=== PATIENT | male | born 1975 | race Caucasian/White ===

== ENCOUNTER 2017-12-12 14:14 | Emergency (ER) | payer OTHER ==
--- NOTE | 2017-12-12 14:55 | ED PDOC ---
Arrival/HPI - General Historian: Patient <Blane Emanuel A - Last Filed: 12/12/17 15:39> <Cheyenne Gregg - Last Filed: 12/15/17 02:21> - General Time Seen by Provider: 12/12/17 14:20 - History of Present Illness Narrative History of Present Illness (Text): 12/12/17 14:49 42yo male with pmhx of hypertension who present with complaint of right calf pain. states he had a "pop" when he leaned over his car to grab something this afternoon. He did not take any medication. Denies previous history. Denies recent surgery/travel, SOB, chest pain, dizziness, nausea, vomiting, any other complaint. (Blane Emanuel A) Past Medical History - Provider Review Nursing Documentation Reviewed: Yes - Cardiac Hx Cardiac Disorders: Yes Hx Hypertension: Yes - Pulmonary Hx Respiratory Disorders: No - Neurological Hx Neurological Disorder: No - HEENT Hx HEENT Disorder: No - Renal Hx Renal Disorder: No - Endocrine/Metabolic Hx Endocrine Disorders: No - Hematological/Oncological Hx Blood Disorders: No - Integumentary Hx Dermatological Disorder: No - Musculoskeletal/Rheumatological Hx Musculoskeletal Disorders: Yes Hx Fractures: Yes - Gastrointestinal Hx Gastrointestinal Disorders: No - Genitourinary/Gynecological Hx Genitourinary Disorders: No - Psychiatric Hx Psychophysiologic Disorder: No Hx Substance Use: No - Surgical History Hx Orthopedic Surgery: Yes (R ANKLE) <Blane Emanuel A - Last Filed: 12/12/17 15:39> Family/Social History - Physician Review Nursing Documentation Reviewed: Yes Family/Social History: Unknown Family HX Smoking Status: Never Smoked Hx Alcohol Use: No Hx Substance Use: No <Blane Emanuel A - Last Filed: 12/12/17 15:39> Allergies/Home Meds <Blane Emanuel A - Last Filed: 12/12/17 15:39> <Cheyenne Gregg - Last Filed: 12/15/17 02:21> Allergies/Adverse Reactions: Allergies No Known Allergies Allergy (Verified 12/12/17 14:21) Home Medications: Home Meds Medication Instructions Recorded Confirmed Losartan [Cozaar] 25 mg PO DAILY 12/12/17 12/12/17 Review of Systems - Physician Review All systems were reviewed & negative as marked: Yes - Review of Systems Constitutional: Normal Eyes: Normal ENT: Normal Respiratory: Normal Cardiovascular: Normal Gastrointestinal: Normal Genitourinary Male: Normal Musculoskeletal: Arthralgias (Right calf pain) Skin: Normal Neurological: Normal Endocrine: Normal Hemo/Lymphatic: Normal Psychiatric: Normal <JenaeBlane A - Last Filed: 12/12/17 15:39> Physical Exam Vital Signs Reviewed: Yes Temperature: Afebrile Blood Pressure: Normal Pulse: Regular Respiratory Rate: Normal Appearance: Positive for: Well-Appearing, Non-Toxic, Comfortable Pain Distress: None Mental Status: Positive for: Alert and Oriented X 3 - Systems Exam Head: Present: Atraumatic, Normocephalic Pupils: Present: PERRL Extroacular Muscles: Present: EOMI Conjunctiva: Present: Normal Mouth: Present: Moist Mucous Membranes Neck: Present: Normal Range of Motion Respiratory/Chest: Present: Clear to Auscultation, Good Air Exchange. No: Respiratory Distress, Accessory Muscle Use Cardiovascular: Present: Regular Rate and Rhythm, Normal S1, S2. No: Murmurs Abdomen: No: Tenderness, Distention, Peritoneal Signs Back: Present: Normal Inspection Upper Extremity: Present: Normal Inspection. No: Cyanosis, Edema Lower Extremity: Present: NORMAL PULSES, Normal ROM, Neurovascularly Intact. No : Edema, CALF TENDERNESS, Judi's Sign, Tenderness, Swelling Neurological: Present: GCS=15, CN II-XII Intact, Speech Normal Skin: Present: Warm, Dry, Normal Color. No: Rashes Psychiatric: Present: Alert, Oriented x 3, Normal Insight, Normal Concentration <JenaeBlane A - Last Filed: 12/12/17 15:39> Vital Signs Temp Pulse Resp BP Pulse Ox 12/12/17 15:50 98 F 75 19 123/53 L 99 12/12/17 14:21 97.9 F 79 16 126/88 97 Medical Decision Making <Blane Emanuel A - Last Filed: 12/12/17 15:39> <Cheyenne Gregg - Last Filed: 12/15/17 02:21> ED Course and Treatment: 12/12/17 15:41 PT in ED for stated history. His PE was benign. Doppler US ordered to r/o DVT. Per the US preliminary report, doppler was negative for DVT Result was DW the pt. He was ambulatory on DC and his PECARN score was zero. ( JenaeHappiness A) - RAD Interpretation Radiology Orders: 12/12/17 14:43 DUPLEX LOWER EXTRM VEIN RIGHT [US] Stat - Medication Orders Current Medication Orders: Discontinued Medications Ketorolac Tromethamine (Toradol) 60 mg IM STAT STA Stop: 12/12/17 15:34 Last Admin: 12/12/17 15:52 Dose: 60 mg MAR Pain Assessment Document 12/12/17 15:52 GMI (Rec: 12/12/17 15:52 GMI [place] [id number]) Pain Reassessment Is this a pain reassessment? Yes Sleep Is patient sleeping during reassessment? No Presence of Pain Presence of Pain Yes Pain Scale Used Pain Scale Used Numeric Location Left, Right or Bilateral Right Upper or Lower Lower Pain Location Body Site Calf Description Description Sharp Intensity of Pain at present 5 Pain Behavior Facial Grimacing Alleviating Factors Distraction IM Administration Charges Document 12/12/17 15:52 GMI (Rec: 12/12/17 15:52 GMI [place] [id number]) Injection Site MAR Injection Site Right Gluteus Dilan Charges for Administration # of IM Administrations 1 - [place] / CITY DETECTIVE / Resident Statement / has reviewed & agrees with the documentation as recorded. <Cheyenne Gregg - Last Filed: 12/15/17 02:21> Disposition/Present on Arrival - Present on Arrival Any Indicators Present on Arrival: No History of DVT/PE: No History of Uncontrolled Diabetes: No Urinary Catheter: No History of Decub. Ulcer: No History Surgical Site Infection Following: None - Disposition Have Diagnosis and Disposition been Completed?: Yes Disposition Time: 15:40 Patient Plan: Discharge <Blane Emanuel A - Last Filed: 12/12/17 15:39> <Cheyenne Gregg - Last Filed: 12/15/17 02:21> - Disposition Diagnosis: Strain of calf muscle Disposition: HOME/ ROUTINE Condition: STABLE Discharge Instructions (ExitCare): Lower Extremity Muscle Strain Additional Instructions: Follow up with your doctor return to ED for any new or worsening symptoms Prescriptions: Ibuprofen [Motrin Tab] 600 mg PO Q6 #15 tab Referrals: Coreen Hamm MD [Primary Care Provider] - Follow up with primary
[2017-12-12 15:57] VITALS: BP 123/53; PULSE 75; RESP 19; TEMP 98; O2SAT 99
--- NOTE | 2017-12-14 12:12 | US ---
PROCEDURE: Right lower extremity venous US HISTORY: Leg pain and swelling. Evaluate for DVT. PHYSICIAN(S): Eugene Wharton M.D. TECHNIQUE: Duplex sonography and color-flow Doppler with graded compression were used to evaluate the deep venous system of the right lower extremity. FINDINGS: The visualized deep venous system of the right lower extremity is sonographically normal and compressible. Normal waveforms and augmentation are seen. There is no sonographic evidence for deep venous thrombosis in the visualized segments of the right lower extremity. IMPRESSION: 1. No sonographic evidence for deep venous thrombosis in the visualized segments of the right lower extremity.
== END 2017-12-12 16:02 | disposition home or self-care (01) ==
LOC: ED 14:14
DX: S86.911A Strain of unspecified muscle(s) and tendon(s) at lower leg level, right leg, initial encounter (principal); X50.0XXA Overexertion from strenuous movement or load, initial encounter; Y92.9 Unspecified place or not applicable
CPT/HCPCS: 93971; 96372; 99282; J1885